=== PATIENT | female | born 1990 | race Caucasian/White ===

== ENCOUNTER 2021-10-27 19:18 | Inpatient (IN) ==
[2021-10-27] MEDS ORDERED: Lactated Ringers 1000 ml BAG 1,000 ML IV ONE (19:55)
[2021-10-27] MEDS ORDERED: Penicillin G Potassium IV 5,000,000 UNITS in NS 0.9% 100 ml BAG 100 ML IVPB ONE (19:55)
[2021-10-27] MEDS ORDERED: Buffered Lidocaine 1% SYRIN 1 ml INTRADERM ONE (19:55)
[2021-10-27] MEDS ORDERED: Penicillin G Potassium IV 3,000,000 UNITS in NS 0.9% 100 ml BAG 100 ML IVPB SCH (20:00)
[2021-10-27] MEDS ORDERED: Lactated Ringers 1000 ml BAG 1,000 ML IV SCH (20:00)
[2021-10-27 20:34] LABS: ABS Lymphocytes 1.2 10^3/ul (1.0-4.8); ABS Monocytes 0.6 10^3/ul (0-0.8); ABS Neutrophils 6.8 10^3/ul (1.5-7.7); Eosinophil % 0.3 %; Hematocrit 31 % (35-47); Hemoglobin 10.2 g/dL (12.0-16.0); Mean Corpuscular HGB Conc 34 g/dL (31-36); Mean Corpuscular Hemoglobin 27 pg (27-31); Mean Corpuscular Volume 80 fL (80-97); Mean Platelet Volume 8.5 fL (7.4-10.4); Platelet Count 198 10^3/uL (150-450); Red Blood Count 3.83 10^6 /uL (3.70-4.87); Red Cell Distribution Width 14 % (10-15); White Blood Count 8.7 10^3/uL (3.5-10.8)
[2021-10-27 20:55] LABS: Urine Benzodiazepine Screen None Detected (None Detect); Urine Cannabinoids Screen None Detected (None Detect); Urine Opiates Screen None Detected (None Detect)
[2021-10-27] MEDS: Lactated Ringers 1000 ml BAG 1,000 ML IV SCH (21:06)
[2021-10-27 22:43] LABS: Albumin 3.5 g/dL (3.2-5.2); Albumin/Globulin Ratio 1.3 (1-3); Calcium 8.7 mg/dL (8.6-10.3); Globulin 2.7 g/dL (2-4); Potassium 3.5 mmol/L (3.5-5.0); Total Bilirubin 0.3 mg/dL (0.2-1.0); Total Protein 6.2 g/dL (6.4-8.9); Uric Acid 3.6 mg/dL (2.3-6.6); eGFR CKD-EPI 119.7 (>60)
[2021-10-28] MEDS ORDERED: OBEPIDURAL (200 ML) 200 ML EPIDURAL ONE (01:55)
[2021-10-28] MEDS: Penicillin G Potassium IV 3,000,000 UNITS in NS 0.9% 100 ml BAG 100 ML IVPB SCH ×2 (02:05→06:05)
[2021-10-28] MEDS ORDERED: Phenylephrine 40 mcg/mL 10mL (400mcg) SYRINGE IV PUSH PRN ×2 (02:46)
[2021-10-28] MEDS ORDERED: Lactated Ringers 1000 ml BAG 500 ML IV PRN ×2 (02:46)
[2021-10-28] MEDS ORDERED: Sodium Citrate/Citric Acid LIQ 15 ML UDC PO PRN (02:46)
[2021-10-28] MEDS ORDERED: Lactated Ringers 1000 ml BAG 1,000 ML IV ONE (02:46)
[2021-10-28] MEDS ORDERED: OBEPIDURAL (200 ML) 200 ML EPIDURAL SCH (03:00)
[2021-10-28] MEDS ORDERED: Lactated Ringers 1000 ml BAG 1,000 ML IV SCH ×3 (03:00→07:00)
[2021-10-28] MEDS ORDERED: Ondansetron 4 mg VIAL 2 MG/ML 2 ml VIAL IV PRN (03:50)
[2021-10-28] MEDS: Lactated Ringers 1000 ml BAG 1,000 ML IV SCH (06:05)
[2021-10-28] MEDS ORDERED: Oxytocin in LR 20,000 MILLI.UNIT/1,000 ML BAG IV ONE (06:15)
[2021-10-28] MEDS ORDERED: Oxytocin in LR 20,000 MILLI.UNIT/1,000 ML BAG IV SCH (06:45)
[2021-10-28] MEDS: Witch Hazel PAD JAR TOPICAL PRN (08:09)
[2021-10-28] MEDS: Dibucaine 1% OINT 28.35 GM TUBE PR PRN (08:09)
[2021-10-29 06:22] LABS: ABS Eosinophils 0.1 10^3/ul (0-0.6); ABS Lymphocytes 1.9 10^3/ul (1.0-4.8); ABS Monocytes 0.6 10^3/ul (0-0.8); ABS Neutrophils 6.4 10^3/ul (1.5-7.7); Eosinophil % 0.7 %; Hematocrit 28 % (35-47); Hemoglobin 9.3 g/dL (12.0-16.0); Lymphocyte % 20.8 %; Mean Corpuscular HGB Conc 33 g/dL (31-36); Mean Corpuscular Hemoglobin 26 pg (27-31); Mean Corpuscular Volume 81 fL (80-97); Mean Platelet Volume 8.3 fL (7.4-10.4); Nucleated Red Blood Cells % 0.1; Platelet Count 163 10^3/uL (150-450); Red Blood Count 3.53 10^6 /uL (3.70-4.87); Red Cell Distribution Width 14 % (10-15)
[2021-10-29] MEDS: Dibucaine 1% OINT 28.35 GM TUBE PR PRN (07:51)
[2021-10-29] MEDS: Witch Hazel PAD JAR TOPICAL PRN (20:27)
[2021-10-30 09:17] VITALS: BP 117/79
== END 2021-10-30 12:45 | disposition home or self-care (01) | DRG 560 ==
LOC: MCHOBOUT 19:18 → MCHOB 19:52
PROVIDERS: ADMIT Midwife; ATTEND Midwife